=== PATIENT | male | born 1985 | race American Indian/Alaskan Native ===

== ENCOUNTER 2017-07-01 16:34 | Emergency (ER) | payer OTHER ==
[~2017-07-01] VITALS: Ht 167.6 cm; Wt 68.5 kg
[2017-07-01] MEDS ORDERED: Bactrim Ds Tab1 EACH PO (18:35)
[2017-07-01] MEDS ORDERED: CEPH500 PO (18:35)
== END 2017-07-01 18:52 | disposition home or self-care (01) ==
LOC: ER 16:34
DX: T25.221A Burn of second degree of right foot, initial encounter (principal); T31.0 Burns involving less than 10% of body surface; F17.200 Nicotine dependence, unspecified, uncomplicated; X10.2XXA Contact with fats and cooking oils, initial encounter
CPT/HCPCS: 16020; 99283